=== PATIENT | female | born 1975 | race Caucasian/White ===

== ENCOUNTER → 2019-06-09 11:46 | Outpatient (CLI) | payer OTHER, MEDICAID, SELFPAY ==
--- NOTE | 2019-06-09 11:55 | DI.CT.S_ITS ---
PROCEDURE: CT KIDNEY URETER BLADDER (KUB) INDICATIONS: CALCULUS OF KIDNEY TECHNIQUE: Noncontrast 5 mm thick sections acquired from the diaphragms to the symphysis. 5 mm thick coronal and sagittal reformats were then performed. For radiation dose reduction, the following was used: automated exposure control, adjustment of mA and/or kV according to patient size. COMPARISON: None. FINDINGS: Image quality: Excellent. Lung bases: Lung bases are clear. Heart size is normal. Urinary system: Both kidneys are normal in size. Bilateral medullary calcinosis is present. Multiple nonobstructing bilateral renal calcifications are present measuring less than 10 mm diameter. Right nephrostomy is present. No hydronephrosis or perinephric fat stranding. Both ureters appear non-dilated throughout their expected courses. Bladder wall thickness is normal; no calcified bladder stones. Other solid organs: Liver is normal in size. Gallbladder is surgically absent. Pancreas is normal in contours. Spleen is normal in size. No adrenal nodules. Peritoneum and bowel: Unenhanced bowel loops demonstrate normal wall thickness and caliber. No free fluid or air. Nodes and vessels: No retroperitoneal or mesenteric adenopathy by size criteria. Aorta and inferior vena cava are normal in caliber. Abdominal wall: No ventral hernias. Pelvis: No free pelvic fluid. No inguinal hernias or adenopathy. Uterus is enlarged diffusely. Bones: No suspicious bony lesions. No vertebral body compression fractures. IMPRESSION: 1. Bilateral medullary calcinosis. 2. Nonobstructing bilateral renal calculi. 3. Right nephrostomy. 4. Enlarged uterus, possibly indicating gravid or state. This could be further assessed with ultrasound, if clinically indicated. Dictated by: Daksha Tsai M.D. on 06/09/2019 at 17:48 Approved by: Daksha Tsai M.D. on 06/09/2019 at 17:51
== END ==
PROVIDERS: PCP Urology; Visit Provider Physician Assistant
DX: N20.0 Calculus of kidney (principal); N85.2 Hypertrophy of uterus; Z93.6 Other artificial openings of urinary tract status; Z90.49 Acquired absence of other specified parts of digestive tract
CPT/HCPCS: 74176

== ENCOUNTER → 2020-09-09 12:34 | Outpatient (CLI) | payer OTHER, MEDICAID, SELFPAY ==
--- NOTE | 2020-09-09 12:36 | DI.US.S_ITS ---
PROCEDURE: US RENAL COMPLETE INDICATIONS: STRICTURE TECHNIQUE: Real-time scanning was performed of the kidneys and bladder, with image documentation. COMPARISON: [facility], CT, CT KUB, 07/25/2020, 21:31. FINDINGS: Kidneys: Kidneys are normal in size. Right kidney measures 10.0 cm long; left kidney measures 11.3 cm long. Right renal cortical thickness is 1.4 cm; left renal cortical thickness is 1.8 cm. Renal cortical echotexture is normal. Medullary calcinosis redemonstrated. No hydronephrosis or nephrolithiasis. No suspicious solid mass lesions. Bladder: Pre-void bladder volume is 338 mL. Post-void residual is 17 mL. Pre-void images demonstrate no intraluminal masses or stones. On pre-void images, bilateral ureteral jets are noted with color Doppler interrogation. (Of note, ureteral jets may not be detectable in up to 25% of cases due to insufficient differences in specific gravity between ureteral and bladder urine). Miscellaneous: No free pelvic fluid. IMPRESSION: Medullary calcinosis redemonstrated; otherwise normal appearance of the kidneys. Dictated by: Marko Miller [facility] Interpreted: Karissa Bass MD on 09/09/2020 at 14:27 Approved by: Karissa Bass M.D. on 09/09/2020 at 16:50
== END ==
PROVIDERS: PCP Urology; Referring Provider Urology; Visit Provider Urology
DX: N13.5 Crossing vessel and stricture of ureter without hydronephrosis (principal)
CPT/HCPCS: 76770

== ENCOUNTER 2021-03-10 18:04 | Emergency (ER) | payer OTHER, MEDICAID, SELFPAY ==
[2021-03-10] VITALS (9 sets, daily range): BP systolic 108–115; BP diastolic 56–58; PULSE 67–92; RESP 20; TEMP 36.4; O2SAT 97–99; BMI 32.8
--- NOTE | 2021-03-10 18:49 | DI.US.S_ITS ---
PROCEDURE: US RENAL COMPLETE INDICATIONS: RIGHT FLANK PAIN; HISTORY STONES TECHNIQUE: Real-time scanning was performed of the kidneys and bladder, with image documentation. COMPARISON: [facility], CT, CT KUB, 07/25/2020, 21:31. [facility], US, US RENAL COMPLETE, 09/09/2020, 13:15. FINDINGS: Kidneys: Kidneys are normal in size. Right kidney measures 9.2 cm long; left kidney measures 10.6 cm long. Right renal cortical thickness is 0.8 cm; left renal cortical thickness is 1.3 cm. Renal cortical echotexture is normal. No hydronephrosis. Medullary calcinosis is present bilaterally. No suspicious solid mass lesions. Bladder: Pre-void bladder volume is 54 mL. Post-void residual is 0 mL. Pre-void images demonstrate no intraluminal masses or stones. Miscellaneous: No free pelvic fluid. IMPRESSION: 1. No hydronephrosis. 2. Medullary calcinosis, as before. Dictated by: Daksha Tsai M.D. on 03/10/2021 at 19:44 Approved by: Daksha Tsai M.D. on 03/10/2021 at 19:45
--- NOTE | 2021-03-10 18:49 | DI.RAD.S_ITS ---
PROCEDURE: XR KUB INDICATIONS: right kidney stone 8mm ? TECHNIQUE: One view of the abdomen acquired. COMPARISON: [facility], CT, CT KUB, 02/02/2021, 20:49. [facility], CR, KUB XRAY (1 VIEW ABDOMEN), 04/12/2014, 10:26. FINDINGS: Surgical changes and devices: Cholecystectomy clips are present. Bowel: Bowel gas pattern is normal. Soft tissues: No change in 8 mm calcification projecting over the inferior pole right kidney. Multiple smaller calcifications project over the superior pole left kidney as well as the right kidney.. Visualized solid organ contours appear normal in size. Bones: No suspicious bony lesions. IMPRESSION: 1. Bilateral renal calculi, as previously documented by CT KUB examination. Dictated by: Daksha Tsai M.D. on 03/10/2021 at 19:22 Approved by: Daksha Tsai M.D. on 03/10/2021 at 19:24
[2021-03-10 18:51] LABS: Add Manual Diff / Slide Review NO; Basophils Absolute Auto 200 /uL (0-100); Basophils Percent Auto 1.1 % (0-2); Eosinophils Absolute Auto 100 /uL (0-450); Hematocrit 39.7 % (36-46); Hemoglobin 13.2 g/dL (12.0-16.0); Lymphocytes Absolute Auto 3300 /uL (1100-4500); Lymphocytes Percent Auto 24.3 % (25-40); Mean Corpuscular HGB Conc 33.3 % (30-36); Mean Corpuscular Hemoglobin 28.1 PG (26-34); Mean Corpuscular Volume 84.4 fL (80-100); Monocytes Absolute Auto 900 /uL (0-900); Monocytes Percent Auto 6.7 % (3-14); Neutrophils Absolute Auto 9000 /uL (1500-7000); Neutrophils Percent Auto 66.9 % (50-75); Platelet Count 384 X10^3/uL (150-400); Red Cell Distribution Width 14.9 % (11.6-14.8); White Blood Cell Count 13.5 X10^3/uL (4.5-11.0)
[2021-03-10] MEDS: ONDANSETRON 4 MG/2 ML INJ IV ×2 (18:57→21:51)
[2021-03-10] MEDS: HYDROMORPHONE 1 MG INJ IV ×2 (18:57→21:51)
--- NOTE | 2021-03-10 18:59 | ED_ITS ---
HPI - Abdominal Pain General Chief Complaint: Urogenital-Female Stated Complaint: Passed 4mm Stone, Severe Pain. Still has 8mm Stone Time Seen by Provider: 03/10/21 18:10 Source: patient Mode of arrival: Ambulatory Limitations: no limitations History of Present Illness HPI narrative: 45-year-old female who has a history of medullary kidney and multiple kidney stones presenting today with right-sided flank pain. She says she frequently has right-sided kidney stones in fact she just passed a 4 mm kidney stone last night at work. 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 She was previously told February 03 that she had an 8 mm stone in her kidney diagnosed by CT [facility]. She is followed by Dr. Amaya [facility] at [facility]. She apparently has been referred to [facility] urology by her wood scaler but has yet to be evaluated. Today she is having quite a bit of pain she is worried that the 8 mm stone has probably started moving. She says typically DilCiklumid works. She has had numerous CT scans. She denies any fever or chills Related Data Previous Rx's Medication Instructions Recorded hydrocodone 5 mg-acetaminophen 325 1 tab PO Q6H PRN #10 tab 03/10/21 mg tablet ondansetron 4 mg disintegrating 4 mg PO Q8H PRN #10 tab 03/10/21 tablet Allergies Allergy/AdvReac Type Severity Reaction Status Date / Time Sulfa (Sulfonamide Allergy Unknown Verified 03/10/21 18:13 Antibiotics) Tetanus Vaccines and Toxoid Allergy Unknown Verified 03/10/21 18:13 Review of Systems Review of Systems Narrative: GENERAL: Denies chills, fatigue, malaise, fever, sweats, travel HEENT: Denies sinus pain, ear pain, sore throat, difficulty swallowing, neck pain RESPIRATORY: Denies dyspnea, cough, wheezing, hemoptysis, sputum. CARDIOVASCULAR: Denies chest pain, palpitations, orthopnea, edema GASTROINTESTINAL: Denies nausea, vomiting, abdominal pain, diarrhea, constipation, melena. : See HPI MUSCULOSKELETAL: Denies weakness, joint pain, or bony pain SKIN: No rash, no erythema, no pruritus NEUROLOGIC: Denies weakness, dizziness, headache, numbness, change in speech, confusion PSYCHIATRIC: No concerning psychosocial issues. 12 point review of systems is negative except for those stated above and HPI Patient History Social History Smoking Status: Never smoker Smoking Status: Never smoker alcohol intake frequency: 0-2 drinks per day Substance Use Type: does not use Exam Initial Vital Signs Initial Vital Signs: Vital Signs Pulse Rate 83 03/10/21 18:10 Blood Pressure 115/56 L 03/10/21 18:10 Pulse Oximetry 99 03/10/21 18:10 GENERAL: Alert 45-year-old female appears uncomfortable HEENT: Head atraumatic,EOMI, pupils reactive, face symmetric, moist mucous membranes CARDIOVASCULAR: Regular rate and rhythm without murmurs, rubs or gallops. RESPIRATORY: Breath sounds equal bilaterally, no wheezes rales or rhonchi. ABDOMEN: Soft, nontender. Normoactive bowel sounds all 4 quadrants. No guarding or rebound. Negative Adams sign : No CVA tenderness EXTREMITIES: Normal range of motion, no clubbing or edema. Neurovascularly intact NEUROLOGICAL: Alert and oriented x4.Normal gait and speech. SKIN: Warm, dry, no laceration, no petechiae, no rashes or lesions. Course Orders Ordered: Discontinued Medications Hydrocodone Bitart/Acetaminophen (Hydrocodone/Acet 5/325 Prepack) [address] [facility] SEEINSTR ONE Stop: 03/10/21 21:49 Last Admin: 03/10/21 22:36 Dose: 1 bottle Documented by: ASIF Hydromorphone HCl (Hydromorphone 1 Mg Inj) 1 mg IV NOW ONE Stop: 03/10/21 18:50 Last Admin: 03/10/21 18:57 Dose: 1 mg Documented by: GRETTA Hydromorphone HCl (Hydromorphone 1 Mg Inj) 1 mg IV NOW ONE Stop: 03/10/21 21:25 Last Admin: 03/10/21 21:51 Dose: 1 mg Documented by: ASIF Ketorolac Tromethamine (Ketorolac 30 Mg/Ml Vial) 30 mg IV NOW ONE Stop: 03/10/21 21:25 Last Admin: 03/10/21 21:51 Dose: 30 mg Documented by: ASIF Ondansetron HCl (Ondansetron 4 Mg/2 Ml Inj) 4 mg IV NOW ONE Stop: 03/10/21 18:50 Last Admin: 03/10/21 18:57 Dose: 4 mg Documented by: GRETTA Ondansetron HCl (Ondansetron 4 Mg/2 Ml Inj) 4 mg IV NOW ONE Stop: 03/10/21 21:25 Last Admin: 03/10/21 21:51 Dose: 4 mg Documented by: ASIF Ondansetron HCl (Ondansetron 4 Mg Odt Prepack) 1 bottle MISC SEEINSTR ONE Stop: 03/10/21 21:49 Last Admin: 03/10/21 22:36 Dose: 1 bottle Documented by: ASIF Vital Signs Vital signs: Vital Signs - 8 hr 03/10/21 21:53 03/10/21 22:00 03/10/21 22:30 Pulse Rate 77 92 H 70 Blood Pressure Pulse Oximetry 98 97 97 03/10/21 22:38 03/10/21 22:39 Pulse Rate 67 Blood Pressure 108/58 L Pulse Oximetry 97 MDM - Abdominal Pain Lab Data Result diagrams: 03/10/21 18:20 03/10/21 18:20 Labs: Lab Results 03/10/21 03/10/21 03/10/21 Range/Units 18:20 18:20 18:20 WBC 13.5 H (4.5-11.0) X10^3/uL RBC 4.70 (4.0-5.2) X10^6/uL Hgb 13.2 (12.0-16.0) g/dL Hct 39.7 (36-46) % MCV 84.4 (80-100) fL MCH 28.1 (26-34) PG MCHC 33.3 (30-36) % RDW 14.9 H (11.6-14.8) % Plt Count 384 (150-400) X10^3/uL Neut % (Auto) 66.9 (50-75) % Lymph % (Auto) 24.3 L (25-40) % [place] % (Auto) 6.7 (3-14) % Eos % (Auto) 1.0 L (2-4) % Baso % (Auto) 1.1 (0-2) % Neut # (Auto) 9000 H (1236-3216) /uL Lymph # (Auto) 3300 (9182-3173) /uL [place] # (Auto) 900 (0-900) /uL Eos # (Auto) 100 (0-450) /uL Baso # (Auto) 200 H (0-100) /uL Sodium 139 (137-145) mmol/L Potassium 4.0 (3.4-5.1) mmol/L Chloride 106 (98-107) mmol/L Carbon Dioxide 24 (22-32) mmol/L BUN 11 (7-17) mg/dL Creatinine 0.81 (0.52-1.04) mg/dL Estimated GFR > 60.0 (>60) mL/min BUN/Creatinine Ratio 13.6 (6-22) Glucose 101 H (70-100) mg/dL Calcium 9.8 (8.4-10.2) mg/dL Total Bilirubin 0.4 (0.2-1.3) mg/dL AST 26 (14-36) IU/L ALT 22 (<35) IU/L Alkaline Phosphatase 73 (38-126) U/L Total Protein 7.8 (6.3-8.2) g/dL Albumin 4.6 (3.5-5.0) g/dL Globulin 3.2 (1.7-4.1) g/dL Albumin/Globulin Ratio 1.4 (1.0-2.8) Lipase 222 (23-300) U/L Urine RBC 1-5/hpf (0-5/HPF) Urine WBC 1-5/hpf (0-5/HPF) Ur Squamous Epith Cells 0-1 /hpf (0-5/HPF) Amorphous Sediment 1+ Urine Bacteria Occasional (0-1) (None) Ur Culture Indicated? Culture not indicate Point of care testing: Urine Dip Bedside Urine Glucose Negative Bedside Urine Bilirubin - Negative Bedside Urine Ketone - Negative Urine Specific [place] 1.015 Bedside Urine Occult Blood +/- Bedside Urine pH 6.5 Bedside Urine Protein - Negative Bedside Urine Urobilinogen - Negative Bedside Urine Nitrite - Negative Bedside Urine Leukocytes - Negative Esterase Imaging Data US - abdomen: Radiologist's Impression: PROCEDURE:? US RENAL COMPLETE ? INDICATIONS:? RIGHT FLANK PAIN; HISTORY STONES ? TECHNIQUE:? Real-time scanning was performed of the kidneys and bladder, with image documentation.? ? COMPARISON:? [facility], CT, CT KUB, 07/25/2020, 21:31.? [facility], US, US RENAL COMPLETE, 09/09/2020, 13:15. ? FINDINGS:? ? Kidneys:? Kidneys are normal in size.? Right kidney measures 9.2 cm long; left kidney measures 10.6 cm long.? Right renal cortical thickness is 0.8 cm; left renal cortical thickness is 1.3 cm.? Renal cortical echotexture is normal.? No hydronephrosis.? Medullary calcinosis is present bilaterally.? No suspicious solid mass lesions.? ? Bladder:? Pre-void bladder volume is 54 mL.? Post-void residual is 0 mL.? Pre- void images demonstrate no intraluminal masses or stones.? ? Miscellaneous:? No free pelvic fluid.? ? IMPRESSION:? 1. No hydronephrosis. 2. Medullary calcinosis, as before.? ? ? Dictated by: Daksha Tsai M.D. on 03/10/2021 at 19:44 ? ? Approved by: Daksha Tsai M.D. on 03/10/2021 at 19:45 ? Abdominal x-ray: Radiologist's Impression: PROCEDURE:? XR KUB ? INDICATIONS:? right kidney stone 8mm ? ? TECHNIQUE:? One view of the abdomen acquired.? ? COMPARISON:? [facility], CT, CT KUB, 02/02/2021, 20:49.? [facility], CR, KUB XRAY (1 VIEW ABDOMEN), 04/12/2014, 10:26. ? FINDINGS:? ? Surgical changes and devices:? Cholecystectomy clips are present. ? Bowel:? Bowel gas pattern is normal.? ? Soft tissues:? No change in 8 mm calcification projecting over the inferior pole right kidney.? Multiple smaller calcifications project over the superior pole left kidney as well as the right kidney..? Visualized solid organ contours appear normal in size.? ? Bones:? No suspicious bony lesions.? ? IMPRESSION:? 1. Bilateral renal calculi, as previously documented by CT KUB examination. ? ? Dictated by: Daksha Tsai M.D. on 03/10/2021 at 19:22 ? ? Approved by: Daksha Tsai M.D. on 03/10/2021 at 19:24 ? MDM Narrative Medical decision making narrative: Patient has leukocytosis but no sign of infection. Renal function also within normal limits. Dilaudid did seem to help her pain but she still is uncomfortable. She is given Dilaudid and Toradol. Patient has had multiple CT scans. She knows that she has an 8 mm stone in renal pelvis from prior CT 1 month ago. At this time renal ultrasound and KUB do not show any movement of stone she has no hydronephrosis. At this time I do not see need for CT scan. 21:12 Dr. Shah, is familiar with patient, agrees with no CT scanning and they are happy to follow up with her next week. Discharge Plan Departure Patient Disposition: Home Clinical Impression: Kidney stones Instructions: DI for Kidney Stones Activity Restrictions/Additional Instructions: *You have been diagnosed with kidney stone *What to do: At this time I have spoken to your urology group. They recommend follow-up with them next week. *Continue to take medications as directed [place] 1 tab every 6 hours needed for severe pain Zofran 4 mg every 4 hours if needed for nausea or vomiting Motrin 800 mg every 8 hours if needed for [id number] pain *Follow up with your primary care provider in 2-3 days *Return to ER if you should have fever, pain not controlled, persistent vomiting any new, worsening or concerning symptoms CONTROLLED SUBSTANCE DISCHARGE (Narcotoic/benzodiazepine/Flexeril/Phenergan) 1. You have been prescribed narcotic medications, it does have acetaminophen/Tylenol/paracetamol in it, DO NOT TAKE MORE THAN 4,00mg in 24 hours of Tylenol. TRAMADOL DOES NOT CONTAIN TYLENOL 2. Please understand that we cannot provide further refills of narcotics, benzodiazepines or controlled substances through the ED and her pain management will need to be through your provider. 3. While on these medications you cannot drive or operate heavy machinery. 4. You cannot sign legal documents or perform any duties such as this. 5. As long as you're taking opiate pain medications he should also be taking a stool softener such as Colace, Dulcolax, MiraLAX or prune juice, to help avoid constipation. Prescriptions: New hydrocodone-acetaminophen 5-325 mg tablet 1 tab PO Q6H PRN (Reason: pain) Qty: 10 RF: 0 ondansetron 4 mg tablet,disintegrating 4 mg PO Q8H PRN (Reason: nausea and vomiting) Qty: 10 RF: 0 Referrals: Cyrus Amaya, [Primary Care Provider] -
[2021-03-10 19:04] LABS: Alanine Aminotransferase 22 IU/L (<35); Albumin 4.6 g/dL (3.5-5.0); Albumin Globulin Ratio 1.4 (1.0-2.8); Alkaline Phosphatase 73 U/L (38-126); Aspartate Aminotransferase 26 IU/L (14-36); BUN Creatinine Ratio 13.6 (6-22); Bilirubin Total 0.4 mg/dL (0.2-1.3); Blood Urea Nitrogen 11 mg/dL (7-17); Calcium 9.8 mg/dL (8.4-10.2); Carbon Dioxide 24 mmol/L (22-32); Chloride 106 mmol/L (98-107); Estimated Glomerular Filt Rate > 60.0 mL/min (>60); Globulin 3.2 g/dL (1.7-4.1); Glucose 101 mg/dL (70-100); HEMOLYSIS < 15 (0-50); Lipase 222 U/L (23-300); Sodium 139 mmol/L (137-145); Total Protein 7.8 g/dL (6.3-8.2)
[2021-03-10 19:22] LABS: Amorphous Sediment Urine 1+; Bacteria Urine Occasional (0-1); RBC Urine 1-5/HPF (0-5/HPF); Squamous Epithelial Cell Urine 0-1 /HPF (0-5/HPF); WBC Urine 1-5/HPF (0-5/HPF)
[2021-03-10] MEDS: KETOROLAC 30 MG/ML VIAL IV (21:51)
[2021-03-10] MEDS: HYDROCODONE/ACET 5/325 PREPACK 1 BOTTLE MISC (22:36)
[2021-03-10] MEDS: ONDANSETRON 4 MG ODT PREPACK 1 BOTTLE MISC (22:36)
== END 2021-03-10 22:46 | disposition home or self-care (01) ==
PROVIDERS: Emergency Provider Emergency Medicine; PCP Urology
DX: N20.0 Calculus of kidney (principal); Z87.442 Personal history of urinary calculi
CPT/HCPCS: 36415; 74018; 76770; 80053; 81003; 81015; 83690; 85025; 87086; 96374; 96375; 96376; 99284; J1170; J1885; J2405

== ENCOUNTER → 2021-04-24 14:39 | Outpatient (CLI) | payer OTHER, MEDICAID, SELFPAY ==
[2021-04-24 17:48] LABS: COVID-19 CEPHEID PCR (VTM/NP) Negative (Negative)
== END ==
PROVIDERS: PCP Urology; Referring Provider Nurse Practitioner Family; Visit Provider Nurse Practitioner Family
DX: Z20.822 Contact with and (suspected) exposure to COVID-19 (principal)
CPT/HCPCS: C9803; U0003